=== PATIENT | female | born 1975 ===

== ENCOUNTER → 2019-05-07 06:00 | Outpatient (CLI) | payer OTHER ==
[~2019-05-07 06:00] MED LIST: VITAMIN D310 MC1 PO; [UNRECOGNIZED DRUG - OTHER]
== END | disposition home or self-care (01) ==
LOC: LAB 06:00 → ADM 08:45 → CIR.AMB 05-12 08:45 → ADM 05-12 08:45 → EDSTATUS 05-12 08:45 → CIR.AMB 05-12 13:00
DX: M67.432 Ganglion, left wrist (principal); G56.02 Carpal tunnel syndrome, left upper limb; I10 Essential (primary) hypertension

== ENCOUNTER 2022-09-13 08:45 | Outpatient (CLI) | payer OTHER | END 2022-09-13 08:47 | disposition home or self-care (01) | LOC: LAB 08:45 | PROVIDERS: ATTEND Internal Medicine Hematology & Oncology | DX: D50.8 Other iron deficiency anemias (principal); R79.9 Abnormal finding of blood chemistry, unspecified; I10 Essential (primary) hypertension; R74.02 Elevation of levels of lactic acid dehydrogenase [LDH]; K76.89 Other specified diseases of liver; D63.8 Anemia in other chronic diseases classified elsewhere; D55.0 Anemia due to glucose-6-phosphate dehydrogenase [G6PD] deficiency; D51.1 Vitamin B12 deficiency anemia due to selective vitamin B12 malabsorption with proteinuria; D51.0 Vitamin B12 deficiency anemia due to intrinsic factor deficiency; E03.8 Other specified hypothyroidism; E06.3 Autoimmune thyroiditis; D75.89 Other specified diseases of blood and blood-forming organs; D51.3 Other dietary vitamin B12 deficiency anemia; J43.2 Centrilobular emphysema; Q76.0 Spina bifida occulta; D59.19 Other autoimmune hemolytic anemia ==

== ENCOUNTER 2022-12-24 09:52 | Outpatient (CLI) | payer OTHER ==
[2022-12-24 10:55] LABS: HEMATOCRIT 39.4 % (36.0-45.00); HEMOGLOBIN 13.1 g/dL (12.0-15.00); MEAN CELL VOLUME 94.9 fL (80.00-100.00); MEAN CORPUSCULAR HEMOGLOBIN 31.6 pg (27.00-32.0); MEAN CORPUSCULAR HGB CONC 33.3 g/dl (32.0-36.0); PLATELET COUNT 267 K/uL (150-450); RED BLOOD COUNT 4.15 M/uL (4.00-6.00); RED CELL DISTRIBUTION WIDTH 13.2 % (11.5-14.5)
[2022-12-24 11:18] LABS: INR 1.01; PARTIAL THROMBOPLASTIN TIME 29.1 SECONDS (22.0-34.0); PROTHROMBIN TIME 10.6 SECONDS (9.0-11.5)
[2022-12-24 11:24] LABS: PT 50:50 10.6 SECONDS (9.7-11.4); PTT 50:50 28.3 SECONDS (22.4-33.0)
[2022-12-24 11:36] LABS: BILIRUBIN TOTAL 0.61 mg/dL (0.3-1.2); CALCIUM 9.3 mg/dL (8.5-10.1); CREATININE SERUM 0.64 mg/dL (0.55-1.02); FERRITIN 21.8 NG/ML (8-252); GFR 99.04; GLOBULINA 4.2 G/DL (2.4-3.5); POTASSIUM 3.81 mEq/L (3.5-5.1); TOTAL PROTEIN 8.2 gm/dL (6.4-8.2)
[2022-12-24 12:05] LABS: FOLIC ACID > 20.00 ng/ml (4.78-20)
== END 2022-12-24 10:06 | disposition home or self-care (01) ==
LOC: LAB 09:52
PROVIDERS: ATTEND Internal Medicine Hematology & Oncology
DX: I10 Essential (primary) hypertension (principal); R74.02 Elevation of levels of lactic acid dehydrogenase [LDH]; K76.89 Other specified diseases of liver; D68.8 Other specified coagulation defects; D68.00 Von Willebrand disease, unspecified; C50.919 Malignant neoplasm of unspecified site of unspecified female breast; R97.8 Other abnormal tumor markers; R97.0 Elevated carcinoembryonic antigen [CEA]; D51.1 Vitamin B12 deficiency anemia due to selective vitamin B12 malabsorption with proteinuria; D51.3 Other dietary vitamin B12 deficiency anemia; D75.89 Other specified diseases of blood and blood-forming organs; J43.2 Centrilobular emphysema; Q76.0 Spina bifida occulta